=== PATIENT | female | born 1985 | race Caucasian/White ===

== ENCOUNTER 2018-10-04 07:04 | Inpatient (IN) ==
[2018-10-04] MEDS ORDERED: FAMOTIDINE 20 MG/2 ML VIAL IVP PRN ×2 (07:10)
[2018-10-04] MEDS ORDERED: Naloxone Inj 0.01 MG in Sodium Chloride 0.9% vial 1 ML IVP PRN (07:10)
[2018-10-04] MEDS ORDERED: CefOXitin Inj 2 GM in Sodium Chloride 0.9% 100 ML IV PRN (07:10)
[2018-10-04] MEDS ORDERED: LIDOCAINE HCL 2 % 10 ML JELLY URO-JECT TOPICAL PRN (07:10)
[2018-10-04] MEDS ORDERED: NALOXONE 0.4 MG/1 ML VIAL IVP PRN (07:10)
[2018-10-04] MEDS ORDERED: Phenylephrine Inj 50 MCG in Sodium Chloride 0.9% vial 0.5 ML IVP PRN (07:10)
[2018-10-04] MEDS ORDERED: CALCIUM CARBONATE 500 MG (TUMS) CHEWABLE TABLET PO PRN (07:10)
[2018-10-04] MEDS ORDERED: fentaNYL Inj 100 MCG/2 ML VIAL IV PRN (07:10)
[2018-10-04] MEDS ORDERED: ePHEDrine Inj 50 MG/ML AMP IVP PRN (07:10)
[2018-10-04] MEDS ORDERED: BUTORPHANOL TARTRATE 2 MG/1 ML VIAL IVP PRN (07:10)
[2018-10-04] MEDS ORDERED: Lidocaine 1% 10 MG/ML - 20 ML VIAL SUBCUT PRN (07:10)
[2018-10-04] MEDS ORDERED: MISOPROSTOL 200 MCG TABLET RECTAL PRN (07:10)
[2018-10-04] MEDS ORDERED: METHYLERGONOVINE MALEATE 0.2 MG/1 ML VIAL IM PRN (07:10)
[2018-10-04] MEDS ORDERED: CITRIC ACID/SODIUM CITRATE 30 ML CUP PO PRN (07:10)
[2018-10-04] MEDS ORDERED: Carboprost Inj 250 MCG/ML AMP IM PRN (07:10)
[2018-10-04] MEDS ORDERED: Nalbuphine Inj 20 MG/ML Ampule IVP PRN (07:10)
[2018-10-04] MEDS ORDERED: OXYTOCIN 10 UNIT/1 ML IM PRN (07:10)
[2018-10-04] MEDS ORDERED: TERBUTALINE SULFATE 1 MG/1 ML SDV SUBCUT PRN (07:10)
[2018-10-04] MEDS ORDERED: diphenhydrAMINE 50 MG/1 ML VIAL IVP PRN (07:10)
[2018-10-04] MEDS ORDERED: ONDANSETRON 4 MG/2 ML VIAL IVP PRN (07:10)
[2018-10-04] MEDS ORDERED: LIDOCAINE W/ SODIUM BICARB 0.5 ML SYR SUBD PRN (07:10)
[2018-10-04] MEDS ORDERED: Metoclopramide Inj 10 MG/2 ML VIAL IV PRN (07:10)
[2018-10-04] MEDS ORDERED: Oxytocin 20 Units + LR 20 UNIT/1,000 ML BAG IV SCH ×2 (07:15)
[2018-10-04 07:44] LABS: Hematocrit [HCT] 38.4 % (37.0-47.0); MEAN CORPUSCULAR HEMOGLOBIN 28.6 PG (27-31); MEAN CORPUSCULAR HGB CONC 33.9 g/dL (33-37); MEAN CORPUSCULAR VOLUME 84.4 FL (81-99); MEAN PLATELET VOLUME 11.5 FL (7.4-12.2); RED BLOOD COUNT 4.55 10^6/uL (4.20-5.40)
[2018-10-04] MEDS: Lactated Ringers-OB Dept 1,000 ML PRIMARY IV SCH ×2 (08:20→16:30)
--- NOTE | 2018-10-04 11:38 | OB.PROGRES ---
Date of Service: 10/04/18 Interval History: Elective induction at 39 6/7 weeks EGA. The patient was admitted this AM and started on pitocin at 2 cm dilation. She remains at 2 cm dilation, with pitocin at 6 and contractions q 2-3 min. Amniotomy was performed with a FSE and return of clear fluid. FHRT is category 1. Anticipate . Objective - Labs CBC and BMP: 10/04/18 07:32 - Vital Signs Last Taken Vital Signs: Vital Signs - Last Taken Temperature 98.3 F 10/04/18 09:15 Pulse Rate 84 10/04/18 11:00 Respiratory Rate 20 10/04/18 07:50 Blood Pressure 134/76 10/04/18 07:50 Pulse Ox 97 10/04/18 11:00
--- NOTE | 2018-10-04 14:29 | OB.PROGRES ---
Date of Service: 10/04/18 Interval History: Cervix 3/80%/-3. IUPC placed. FHRT remains category 1. Objective - Labs CBC and BMP: 10/04/18 07:32 - Vital Signs Last Taken Vital Signs: Vital Signs - Last Taken Temperature 98.3 F 10/04/18 09:15 Pulse Rate 88 10/04/18 13:00 Respiratory Rate 20 10/04/18 07:50 Blood Pressure 134/76 10/04/18 07:50 Pulse Ox 98 10/04/18 13:00
[2018-10-05] MEDS: Lactated Ringers-OB Dept 1,000 ML PRIMARY IV SCH (02:27)
--- NOTE | 2018-10-05 06:34 | OB.PROGRES ---
Interval History: The patient has contracted adequately (>200 MVU) since placement of IUPC. Pitocin was stopped at 2140 to allow the uterus to reset. She continued maria eugenia without pitocin, but without cervical change. Pitocin was restarted at 0200, and she has continued to contact well without cervical change. This was discussed with the patient, who indicated that her own mother never dilated beyond 5 cm. The patient was recommended for delivery due to arrest of dilation, and she agreed. Will proceed with delivery radha. FHRT remains category 1. Objective - Labs CBC and BMP: 10/04/18 07:32 - Vital Signs Last Taken Vital Signs: Vital Signs - Last Taken Temperature 98.5 F 10/05/18 02:30 Pulse Rate 58 L 10/05/18 05:15 Respiratory Rate 18 10/05/18 02:30 Blood Pressure 130/66 10/05/18 05:15 Pulse Ox 99 10/05/18 05:15
[2018-10-05] MEDS ORDERED: MORPHINE SULFATE/PF 10 MG/10 ML AMPULE ONE (06:54)
[2018-10-05] MEDS ORDERED: AZITHROMYCIN 500 MG VIAL IV ONE (07:04)
[2018-10-05] MEDS ORDERED: MIDAZOLAM HCL 2 MG/2 ML VIAL ONE (07:24)
[2018-10-05] MEDS ORDERED: Lidocaine Inj 1% 0 ML ONE (07:25)
[2018-10-05] MEDS ORDERED: PROPOFOL 10 MG/1 ML (200 MG/20 ML) VIAL IV ONE ×2 (07:41→14:24)
[2018-10-05] MEDS ORDERED: BUPivacaine Liposome/PF (Exparel) Inj 20ml vial INFIL ONE (07:58)
--- NOTE | 2018-10-05 08:24 | OB.OP.NOTE ---
Operative Report Surgeon: Dr. Levine Trimming Cutter Machine: Min Frias MD Anesthesia Type: General, Regional Anesthesia Provider: Robi Winters MD Surgery Date: 10/05/18 Preoperative Diagnosis: Arrest of dilation Postoperative Diagnosis: Same Procedure: Primary LTCS with incidental myomectomy Estimated Blood Loss (mL): 600 Fluids: 3700 ml Complications: None identified Findings at Surgery: Viable male , Apgars 7/7, Weight 7 lbs 1 oz, Acynclitic cephalic present ation. 5 cm pedunculated right fundal fibroid. Normal tubes and ovaries. Indications for the Procedure: Arrest of dilation at 4 cm. Description of Procedure: See dictated operative report. Plan: Routine post op care, with Lovenox for DVT prophylaxis.
--- NOTE | 2018-10-05 08:32 | CRNA.PROGR ---
Anesthesia Time - Procedure/Recovery Time Start Date: 10/05/18 End Date: 10/05/18 Anesthesia : Time In: 07:01 Anesthesia : Time Out: 08:25 Anesthesia : Total Time: 84 - Block Time Start Date: 10/05/18 End Date: 10/05/18 PreOp Block : Time In: 06:54 PreOp Block : Time Out: 07:00 PreOp Block : Total Time: 6 - Total Anesthesia Time Total Anesthesia Time (minutes): 90 - Other Weight: 133.356 kg Height: 5 ft 4 in Body Mass Index (BMI): 50.4 Physical Status: P2 (stable at patient handoff pacu/stable at pt d/c to floor) Anesthesia Type: General Anesthesia : ET Obstetrics: C/S anesthesia only
[2018-10-05] MEDS ORDERED: fentaNYL Inj 100 MCG/2 ML VIAL IVP PRN (08:33)
[2018-10-05] MEDS ORDERED: KETOROLAC 15 MG/1 ML VIAL IVP PRN (08:33)
[2018-10-05] MEDS ORDERED: LIDOCAINE W/ SODIUM BICARB 0.5 ML SYR SUBD PRN (08:33)
--- NOTE | 2018-10-05 08:33 | CRNA.PROGR ---
Anesthesia Recovery Phase I - Post Anesthesia Evaluation Patient's Condition on Arrival in Phase I: Stable Patient's Condition on Arrival in Phase II: Stable Pain Level: 4
[2018-10-05] MEDS ORDERED: KETOROLAC 30 MG/1 ML VIAL ONE (08:37)
[2018-10-05] MEDS ORDERED: HYDROmorphone 2 MG/1 ML ONE (08:37)
--- NOTE | 2018-10-05 08:37 | CRNA.PROGR ---
Anesthesia Note - Progress Notes Anesthesia Progress Note: patient recovery stable post c/s w general anesthesia. baby 7/7 at 5"/10" respectively. followup per surgeon patient request PRN ELIZABETH
[2018-10-05] MEDS ORDERED: KETOROLAC 30 MG/1 ML VIAL IVP ONE (08:38)
[2018-10-05] MEDS: HYDROmorphone 2 MG/1 ML IVP PRN ×2 (08:42→08:58)
[2018-10-05] MEDS ORDERED: LANOLIN HPA 40 GM TUBE TOPICAL PRN (10:03)
[2018-10-05] MEDS ORDERED: Nalbuphine Inj 20 MG/ML Ampule IVP PRN (10:03)
[2018-10-05] MEDS ORDERED: CALCIUM CARBONATE 500 MG (TUMS) CHEWABLE TABLET PO PRN (10:03)
[2018-10-05] MEDS ORDERED: ONDANSETRON 4 MG/2 ML VIAL IVP PRN (10:03)
[2018-10-05] MEDS ORDERED: DIPH,PERTUSS,TET(ADACEL) VAC/PF 0.5 ML (Tdap) IM ONE (10:03)
[2018-10-05] MEDS ORDERED: ENOXAPARIN SODIUM 40 MG/0.4 ML SYRINGE SUBCUT SCH ×2 (10:03→21:00)
[2018-10-05] MEDS ORDERED: BUTORPHANOL TARTRATE 2 MG/1 ML VIAL IVP PRN (10:03)
[2018-10-05] MEDS ORDERED: Ertapenem Inj 1 GM in Sodium Chloride 0.9% 100 ML IV SCH ×2 (10:03→21:00)
[2018-10-05] MEDS ORDERED: FAMOTIDINE 20 MG/2 ML VIAL IVP PRN (10:03)
[2018-10-05] MEDS ORDERED: Oxytocin 20 Units + LR 20 UNIT/1,000 ML BAG IV SCH (10:03)
[2018-10-05] MEDS ORDERED: Naloxone Inj 0.01 MG, Sodium Chloride 0.9% vial 1 ML IVP PRN ×2 (10:03)
[2018-10-05] MEDS ORDERED: diphenhydrAMINE 50 MG/1 ML VIAL IV PRN (10:03)
[2018-10-05] MEDS ORDERED: diphenhydrAMINE 25 MG CAPSULE PO PRN (10:03)
[2018-10-05] MEDS: D5-LR 1,000 ML PRIMARY IV SCH ×2 (13:11→18:36)
[2018-10-05] MEDS ORDERED: fentaNYL Inj 100 MCG/2 ML VIAL IVP ONE (14:24)
[2018-10-05] MEDS ORDERED: SUCCINYLCHOLINE CHLORIDE 20 MG/1 ML - 10 ML IVP ONE (14:24)
[2018-10-05] MEDS: KETOROLAC 15 MG/1 ML VIAL IVP SCH ×2 (16:29→22:31)
[2018-10-05] MEDS: oxyCODONE-ACETAMINOPHEN 5-325 TAB PO PRN ×2 (16:58→21:30)
[2018-10-05] MEDS ORDERED: ENOXAPARIN SODIUM 80 MG/0.8 ML SYRINGE SUBCUT SCH (21:00)
[2018-10-05] MEDS: ENOXAPARIN SODIUM 40 MG/0.4 ML SYRINGE SUBCUT SCH (21:30)
[2018-10-06] MEDS: oxyCODONE-ACETAMINOPHEN 5-325 TAB PO PRN (01:36)
[2018-10-06] MEDS: KETOROLAC 15 MG/1 ML VIAL IVP SCH ×2 (05:05→10:52)
[2018-10-06] MEDS: D5-LR 1,000 ML PRIMARY IV SCH ×3 (05:18→18:25)
[2018-10-06 06:11] LABS: Hematocrit [HCT] 31.9 % (37.0-47.0); Hemoglobin [HGB] 10.8 g/dL (12.0-16.0); MEAN CORPUSCULAR HEMOGLOBIN 29.2 PG (27-31); MEAN CORPUSCULAR HGB CONC 33.9 g/dL (33-37); MEAN CORPUSCULAR VOLUME 86.2 FL (81-99); MEAN PLATELET VOLUME 10.9 FL (7.4-12.2); RED BLOOD COUNT 3.7 10^6/uL (4.20-5.40)
[2018-10-06] MEDS ORDERED: MMR VACCINE 12500 UNIT/0.5 ML SUBCUT ONE (06:55)
[2018-10-06] MEDS ORDERED: RHO(D) IMMUNE GLOBULIN 1500 UNIT(300 mcg)SYRIN IM ONE (06:57)
--- NOTE | 2018-10-06 09:04 | OB.PROGRES ---
Subjective Post Day: 1 Pain Management: IV Toradol (Percocet) Robin Catheter: Yes Flatus: Yes Lochia Color: Serosa/Brown Scant < 10 ml Diet: Regular Ambulating: Yes Concerns / Additional Information: The patient has been up once or twice. No ambulation yet. Patient still has Robin. Positive flatus. Tolerating regular diet. No headache. No right upper quadrant pain. Patient states that she is doing okay. Breast-feeding Objective - General General Appearance: POSITIVE: No Acute Distress, Cooperative - Cardiovacular Cardiovascular Exam: POSITIVE: RRR Edema: +1 Pedal Edema Extremities: Negative Arianna's - Bilaterally - Respiratory Respiratory Exam: POSITIVE: Clear to Auscultation - Bilaterally, Decreased Breath Sounds (In the bases) - Abdomen Bowel Sounds: Hypoactive Abdominal Wound Assessment: Silverlone Dressing Other Abdominal Exam Details: No guarding or rebound - Fundus/Lochia/Perineum Uterus Consistency: Firm Assesstment / Plan Assessment / Plan: Assessment: Postoperative day #1 status post primary low transverse section for arrest of dilation and asynclitic head presentation. The patient has had some mildly elevated blood pressures with the highest in the 150s over 90s. No history of hypertension in her . The patient's H&H was 10.8 and 31.9. Platelets are 195,000. The patient may have preeclampsia or hypertension. The patient does have morbid obesity with a BMI greater than 50 on admission to labor and delivery. Now that she is delivered, her BMI is slightly less than 50 most likely. The patient is that risk for a DVT or PE and the patient received her first dose of Lovenox 40 mg subcutaneous last evening. Plan: I would like to have the patient ambulate at least 4 times today in the halls. I will check a CMP to look at renal function liver function tests I will ask the nurse to dip her urine for protein from her Robin catheter I will talk with the pharmacy about the possibility of increasing the dose of Lovenox from 40 mg subcutaneous twice a day up to 60 or 80 mg subcutaneous twice a day secondary to her morbid obesity. The patient will be on the Lovenox until discharge. SCDs are also being used. The patient will also ambulate. I may start the patient on nifedipine 30 mg XL tablet once daily after I get the chemistry results and urine protein results. Continue to evaluate. The patient may not be discharged until postop day #3 or 4 depending upon how she is doing. The patient expressed understanding.
[2018-10-06] MEDS: Prenatal Multivitamin Tab 1 TAB TAB PO SCH (09:25)
[2018-10-06] MEDS: Senna/Docusate Tab 1 TAB TAB PO SCH ×2 (09:25→21:11)
[2018-10-06] MEDS: ENOXAPARIN SODIUM 60 MG/0.6 ML SYRINGE SUBCUT SCH ×2 (10:20→21:11)
[2018-10-06 10:48] LABS: BLOOD UREA NITROGEN 10 mg/dL (7-22); SERUM ALBUMIN 2.9 g/dL (3.5-4.8)
[2018-10-06] MEDS: IBUPROFEN 800 MG TABLET PO SCH (16:40)
--- NOTE | 2018-10-06 17:04 | OB.PROGRES ---
Subjective Post Day: 1 Concerns / Additional Information: Patient states that she is feeling well. Has not ambulated much yet except for in the room because she does have some discomfort. Assesstment / Plan Assessment / Plan: Assessment: Postoperative day #1 status post primary low transverse section for arrest of dilation and asynclitic presentation. Patient's blood pressures this morning were elevated but not in the severe range. This afternoon, the patient's blood pressures were in the normal range. Her urine dip was negative for protein. Labs were drawn and liver function tests were normal and renal function tests were normal. Platelets were normal. The current plan is to check a CBC and a CMP in the morning. I will continue to follow blood pressures. If the patient's blood pressures do elevate, I will have a very low threshold for starting nifedipine XL 30 mg tablet- 1 by mouth daily. The patient expressed understanding. I also encouraged the patient to ambulate more because of the increased risk for DVT and PE. Patient expressed understanding. Patient is receiving Lovenox 60 mg subcutaneous twice a day.
[2018-10-06] MEDS: NIFEdipine 30 MG ER 24H TABLET PO SCH (18:26)
[2018-10-07] MEDS: IBUPROFEN 800 MG TABLET PO SCH ×3 (01:01→16:59)
[2018-10-07] MEDS: D5-LR 1,000 ML PRIMARY IV SCH (06:11)
[2018-10-07] MEDS: ENOXAPARIN SODIUM 40 MG/0.4 ML SYRINGE SUBCUT SCH (06:12)
[2018-10-07] MEDS: Lactated Ringers-OB Dept 1,000 ML PRIMARY IV SCH (06:13)
[2018-10-07 08:20] LABS: BLOOD UREA NITROGEN 9 mg/dL (7-22); BUN/CREATININE RATIO 11.25 (6-20); SERUM ALBUMIN 3.3 g/dL (3.5-4.8)
[2018-10-07 08:25] LABS: Hematocrit [HCT] 33.8 % (37.0-47.0); Hemoglobin [HGB] 11.1 g/dL (12.0-16.0); MEAN CORPUSCULAR VOLUME 88 FL (81-99); RED BLOOD COUNT 3.85 10^6/uL (4.20-5.40)
[2018-10-07 08:26] LABS: MEAN CORPUSCULAR HGB CONC 32.9 g/dL (33-37); MEAN PLATELET VOLUME 8.9 FL (7.4-12.2); WBC MORPHOLOGY COMMENT NORMAL MORPHOLOGY (NORM)
[2018-10-07 08:27] LABS: BAND NEUTROPHILS % 0 % (0-10); BASOPHILS % (MANUAL) 0 % (0-1); EOSINOPHILS % (MANUAL) 1 % (0-8); MONOCYTES % (MANUAL) 2 % (0-12); NEUTROPHILS % (MANUAL) 84 % (50-80); PLATELET MORPHOLOGY COMMENT SEE COMMENTS (NORM); RBC MORPHOLOGY COMMENT NORMAL MORPHOLOGY (NORM)
[2018-10-07] MEDS: ENOXAPARIN SODIUM 60 MG/0.6 ML SYRINGE SUBCUT SCH ×2 (08:50→20:59)
[2018-10-07] MEDS: Senna/Docusate Tab 1 TAB TAB PO SCH ×2 (08:50→20:59)
[2018-10-07] MEDS: Prenatal Multivitamin Tab 1 TAB TAB PO SCH (08:50)
[2018-10-07] MEDS: NIFEdipine 30 MG ER 24H TABLET PO SCH (08:51)
--- NOTE | 2018-10-07 11:59 | OB.PROGRES ---
Subjective Post Day: 2 Pain Management: PO Robin Catheter: No Flatus: Yes Lochia Color: Serosa/Brown Scant < 10 ml Diet: Regular Locke Feeding Method: / Bottle Ambulating: Yes Concerns / Additional Information: The patient is ambulated some. To shower. Around her incision site she has pruritus. The patient has also noticed a headache today and her headache went away when she took a shower but now it has returned. She usually drinks caffeine but has not had caffeine for the past 48+ hours. The patient has not taken Percocet since yesterday morning according to the patient. Objective - General General Appearance: POSITIVE: No Acute Distress, Cooperative - Cardiovacular Cardiovascular Exam: POSITIVE: RRR Edema: +1 Pedal Edema Extremities: Negative Arianna's - Bilaterally - Respiratory Respiratory Exam: POSITIVE: Clear to Auscultation - Bilaterally - Abdomen Other Abdominal Exam Details: The skin around the incision is red and irritated. The patient does have an adhesive allergy. However, the Silverlon dressing was placed and then the tape. The patient may have an allergy to the Silverlon as well as adhesive. Also, possibly the Steri-Strips. The incision itself looks good without exudate. No drainage. Assesstment / Plan Assessment / Plan: Assessment: Postoperative day #2 status post primary low transverse section for arrest of dilation hypertension with normal labs today and yesterday and negative p rotein on urine dip from Robin catheter yesterday morning. The patient was started on nifedipine XL 30 mg tablet yesterday. The patient has a headache today. The etiology of the headache may be secondary to the antihypertensive, the lack of caffeine since the patient drinks caffeine with both coffee and sodas, or may be secondary to her hypertension. The patient had 1 mildly elevated blood pressure with diastolic of 90 this morning. The patient has an allergy to adhesives. The patient also may be allergic to the Silverlon. Plan: Continue the nifedipine for now. Tylenol 500 mg 2 tablets by mouth now The patient should drink a cup of caffeinated coffee and then we will determine if the patient's headache resolves. Again, the headache may be secondary to the nifedipine and this should improve but may not. Continue to care for the patient today. No discharge home today. Continue to evaluate blood pressures and now headache. As well as incision. Silverlon will not be placed over the patient's incision currently. Hydrocortisone 1% apply twice a day to 3 times a day around the patient's incision. No tape or adhesive around the incision currently. And will continue to evaluate the incision and abdominal skin around the incision site.
[2018-10-07] MEDS ORDERED: ACETAMINOPHEN 500 MG TABLET PO ONE (12:11)
[2018-10-07] MEDS: HYDROCORTISONE 1% CREAM - 28.35 GM TOPICAL SCH ×2 (16:59→20:59)
[2018-10-08] MEDS: IBUPROFEN 800 MG TABLET PO SCH ×2 (00:44→08:56)
[2018-10-08 02:14] VITALS: O2SAT 95
[2018-10-08 05:05] LABS: BLOOD UREA NITROGEN 13 mg/dL (7-22); BUN/CREATININE RATIO 18.57 (6-20); Hematocrit [HCT] 32.9 % (37.0-47.0); MEAN CORPUSCULAR VOLUME 87 FL (81-99); RED BLOOD COUNT 3.78 10^6/uL (4.20-5.40); SERUM ALBUMIN 3.1 g/dL (3.5-4.8)
[2018-10-08 05:06] LABS: MEAN CORPUSCULAR HEMOGLOBIN 29.2 PG (27-31); MEAN CORPUSCULAR HGB CONC 33.5 g/dL (33-37); MEAN PLATELET VOLUME 9.1 FL (7.4-12.2)
[2018-10-08 08:24] VITALS: BP 135/84; RESP 18; TEMP 98.2
[2018-10-08] MEDS: HYDROCORTISONE 1% CREAM - 28.35 GM TOPICAL SCH (08:38)
[2018-10-08] MEDS: ENOXAPARIN SODIUM 60 MG/0.6 ML SYRINGE SUBCUT SCH (08:38)
[2018-10-08] MEDS: Senna/Docusate Tab 1 TAB TAB PO SCH (08:56)
[2018-10-08] MEDS: NIFEdipine 30 MG ER 24H TABLET PO SCH (08:56)
[2018-10-08] MEDS: Prenatal Multivitamin Tab 1 TAB TAB PO SCH (08:56)
--- NOTE | 2018-10-08 11:55 | OB.PROGRES ---
Subjective Post Day: 3 Pain Management: PO Robin Catheter: No Flatus: Yes Lochia Color: Rubra/Red Diet: Regular Feeding Method: / Bottle Ambulating: Yes Concerns / Additional Information: The patient is feeling much better. The patient is having less pruritus around her incision but it is still red and irritating. Currently, she does have some itching. The patient had her gallbladder out a while ago and she believes that she did react to the Steri-Strips. The patient would like to go home today. Patient will have support at home. The patient does have a follow-up appointment scheduled for Tuesday which is 3 days from now. Patient lives in [place], [place]. Objective - General General Appearance: POSITIVE: No Acute Distress, Cooperative - Cardiovacular Cardiovascular Exam: POSITIVE: RRR Edema: +1 Pedal Edema Extremities: Negative Arianna's - Bilaterally - Respiratory Respiratory Exam: POSITIVE: Clear to Auscultation - Bilaterally - Abdomen Bowel Sounds: Present Abdominal Wound Assessment: Well Approximated, Reddened (The skin around the inc ision) Other Abdominal Exam Details: Abdomen is soft and appropriately tender but no guarding or rebound. There is erythema around the patient's incision from a reaction to the adhesive but the incision itself does not have any exudate or discharge. The Steri-Strips were removed and detachol was used to remove any adhesive and then saline was used to clean the area of the detachol. Steri- strips were not replaced. Hydrocortisone was then applied to the skin superiorly and inferiorly to the incision site. - Fundus/Lochia/Perineum Uterus Consistency: Firm Uterus Position: POSITIVE: Below Umbilicus Assesstment / Plan Assessment / Plan: Assessment: Postoperative day #3 status post primary low transverse section after arrest of dilation and asynclitic presentation of fetus. The patient has an allergy to adhesives and the patient has had a reaction to the adhesive and perhaps the Silverlon dressing. There is erythema around the incision but no exudate from the incision itself. The patient's blood pressures are improved now that she is taking the antihypertensive nifedipine 30 mg XL tablets 1 tablet by mouth daily CBC and CMP today were normal except for the patient's mild anemia. Liver function tests and renal function tests normal. Platelets normal. Plan: The adhesive and Steri-Strips were removed from around the incision site. The skin was then cleaned with saline. Silverlon dressing was not replaced. The patient will follow-up in 3 days or sooner for increased symptoms. If the patient has increased wound or skin symptoms around her incision, referral to physical therapy for wound care may be optimal. Discharge medications: Oxycodone/Tylenol 1-2 tablets by mouth every 6 hours when necessary pain #20 no refills. The patient has not been taking oxycodone in the hospital but it still prescribe some to go home with. Ibuprofen 800 mg 1 tablet by mouth 3 times a day with food or milk for 5 days then 3 times a day as needed Ferrous sulfate 325 mg 1 tablet by mouth daily for 1 month Colace 100 mg capsule 1 capsule by mouth daily to twice a day when necessary constipation Nifedipine XL 30 mg tablet -1 tablet by mouth daily The patient was instructed to take this daily. Blood pressure will be checked at her appointment this week. Hopefully, the patient will only have to take the antihypertensive for several weeks and then this can be discontinued. Zyrtec (Ceftirizine) 10 mg tablet 1 tablet by mouth daily as an antihistamine secondary to the patient's skin reaction to the adhesive. Hydrocortisone 1% apply twice a day to 3 times a day around the incision site on the skin that is irritated. Usual postoperative instructions have been discussed and will be discussed by the nurse prior to discharge. Usual depression precautions have been discussed and will be discussed by the nurse prior to discharge The patient should return to the emergency room for fever, increasing pain, increasing wound issues. The patient will follow up with Dr. Levine with her appointment on 10/11/2018. The patient should obtain an appointment for her to follow-up.
--- NOTE | 2018-10-08 12:33 | DCSUMMARY ---
Hospitalization Summary Admit Date: 10/04/18 Discharge Date: 10/08/18 Primary Diagnosis:: IUP term Secondary Diagnosis:: Arrest of dilation hypertension Allergic reaction to adhesive Primary Surgery and Date: 10/05/2018. Primary low transverse section Delivery Type: Hospital Course: Assessment: Postoperative day #3 status post primary low transverse section after arrest of dilation and asynclitic presentation of fetus. The patient has an allergy to adhesives and the patient has had a reaction to the adhesive and perhaps the Silverlon dressing. There is erythema around the incision but no exudate from the incision itself. The patient's blood pressures are improved now that she is taking the antihypertensive nifedipine 30 mg XL tablets 1 tablet by mouth daily CBC and CMP today were normal except for the patient's mild anemia. Liver function tests and renal function tests normal. Platelets normal. Plan: The adhesive and Steri-Strips were removed from around the incision site. The skin was then cleaned with saline. Silverlon dressing was not replaced. The patient will follow-up in 3 days or sooner for increased symptoms. If the patient has increased wound or skin symptoms around her incision, referral to physical therapy for wound care may be optimal. Discharge medications: Oxycodone/Tylenol 1-2 tablets by mouth every 6 hours when necessary pain #20 no refills. The patient has not been taking oxycodone in the hospital but it still prescribe some to go home with. Ibuprofen 800 mg 1 tablet by mouth 3 times a day with food or milk for 5 days then 3 times a day as needed Ferrous sulfate 325 mg 1 tablet by mouth daily for 1 month Colace 100 mg capsule 1 capsule by mouth daily to twice a day when necessary constipation Nifedipine XL 30 mg tablet -1 tablet by mouth daily The patient was instructed to take this daily. Blood pressure will be checked at her appointment this week. Hopefully, the patient will only have to take the antihypertensive for several weeks and then this can be discontinued. Zyrtec (Ceftirizine) 10 mg tablet 1 tablet by mouth daily as an antihistamine secondary to the patient's skin reaction to the adhesive. Hydrocortisone 1% apply twice a day to 3 times a day around the incision site on the skin that is irritated. Usual postoperative instructions have been discussed and will be discussed by the nurse prior to discharge. Usual depression precautions have been discussed and will be discussed by the nurse prior to discharge The patient should return to the emergency room for fever, increasing pain, increasing wound issues. The patient will follow up with Dr. Levine with her appointment on 10/11/2018. The patient should obtain an appointment for her to follow-up. / Postop Complications: Patient did have hypertension which was treated with nifedipine 30 mg XL tablets. One by mouth daily. Patient did have an allergic reaction to the adhesive around her incision. Please see my notes. Complications: The did well. Please see the notes. Exam - Vitals Vital Signs: Vital Signs Temperature 98.2 F Temperature Source Oral Pulse Rate [Apical] 70 Pulse Rate [Pulse Oximeter] 72 Pulse Rate [LEFT HAND] 88 Pulse Rate [RIGHT HAND] 80 Pulse Rate 86 Respiratory Rate 18 Blood Pressure [Left Arm] 138/83 Blood Pressure [Right Arm] 135/84 Blood Pressure 140/83 Pulse Ox [LEFT HAND] 98 Pulse Ox [RIGHT HAND] 98 Pulse Ox 95 Oxygen Flow Rate 2L NC Oxygen Delivery Method [LEFT Room Air HAND] Oxygen Delivery Method [RIGHT Room Air HAND] Oxygen Delivery Method Room Air Height 5 ft 4 in Weight 294 lb
--- NOTE | 2018-10-09 14:39 | PT AM DAY ---
AM - Physical Therapy O: The patient was issued toilet tongs and instructed in their proper use and care. P: No further therapy is indicated at this time. MTDD
== END 2018-10-08 14:25 | disposition home or self-care (01) | DRG 788 ==
LOC: OBIP 07:04
PROVIDERS: ADMIT Obstetrics & Gynecology; ATTEND Obstetrics & Gynecology